=== PATIENT | female | born 1980 | race African-American/Black ===

== ENCOUNTER 2016-11-16 21:29 | Emergency (ER) | payer OTHER ==
[~2016-11-16] VITALS: Ht 165.1 cm; Wt 90.0 kg
[2016-11-16 21:48] VITALS: BP 117/58; PULSE 101; RESP 18; TEMP 97.8; O2SAT 100
[2016-11-16] MEDS ORDERED: PRIL20CA9 PO (21:56)
[2016-11-16] MEDS ORDERED: ERGO1CAP10 PO (21:56)
[2016-11-16] MEDS ORDERED: oxyCODONE/ACETAMINOPHEN 10 MG/325 MG TAB PO ONE (22:30)
--- NOTE | 2016-11-16 22:55 | RADRPT ---
EXAM DATE/TIME: 11/16/2016 22:36 [place] COMPARISON: No previous studies available for comparison. INDICATIONS : Right knee pain post twisting injury at [employer]. MEDICAL HISTORY : None. SURGICAL HISTORY : None. ENCOUNTER: Initial ACUITY: 1 day PAIN SCORE: 10/10 LOCATION: Right knee FINDINGS: Four view examination of the right knee demonstrates no evidence of fracture or dislocation. Bony mi neralization is normal. Mild degenerative changes noted involving the patella with slight spurring. The articular surfaces are intact. There is mild fullness in the suprapatellar bursa region consisten t with a small joint effusion. CONCLUSION: 1. No acute fracture or malalignment. 2. Mild osteoarthritic change. 3. Small amount of joint fluid. Efrain Warren MD on November 16, 2016 at 22:52 Board Certified Radiologist. This report was verified electronically.
[2016-11-16] MEDS ORDERED: NORC5TAB PO (23:04)
--- NOTE | 2016-11-16 23:04 | PD ---
HPI Chief Complaint: Injury Time Seen by Provider: 22:00 Travel History International Travel<30 days: No Contact w/Intl Traveler<30days: No Traveled to known affect area: No History of Present Illness HPI Patient is a 35 her old female who was with her [place] the [employer] [place] when she landed awkwardly on the [place]. She states she felt like her right knee bowed outwards that she landed. She is felt a pop in his been not attempted to bear weight since. Denies any other injuries denies any head neck back chest abdomen or other extremity injury. Patient states happened just prior to arrival. She did arrive by EMS and they splint is in place. PFSH Past Medical History Diminished Hearing: No GERD: Yes Medical other: Yes (vitamin D deffency) Tetanus Vaccination: Unknown Influenza Vaccination: Yes ?: Unknown LMP: 11/09/2016 Past Surgical History Surgical History: No Previous Surgery Social History Alcohol Use: No Tobacco Use: No Substance Use: No Allergies-Medications (Allergen,Severity, Reaction): Coded Allergies: No Known Allergies (Unverified , 11/16/16) Reported Meds & Prescriptions Reported Meds & Active Scripts Active [place] (Hydrocodone-Acetaminophen) 5-325 mg Tab 1 Tab PO Q6H PRN Reported Vitamin D (Ergocalciferol) 50,000 Unit Cap 50,000 Units PO Q7D Prilosec (Omeprazole) 20 Mg Cap 20 Mg PO DAILY Review of Systems Except as stated in HPI: all other systems reviewed are Neg Physical Exam Narrative GENERAL: Well-nourished, well-developed patient. SKIN: Focused skin assessment warm/dry. HEAD: Normocephalic. EYES: No scleral icterus. No injection or drainage. NECK: Supple, trachea midline. No JVD or lymphadenopathy. CARDIOVASCULAR: Regular rate and rhythm without murmurs, gallops, or rubs. RESPIRATORY: Breath sounds equal bilaterally. No accessory muscle use. GASTROINTESTINAL: Abdomen soft, non-tender, nondistended. MUSCULOSKELETAL: No cyanosis, or edema. Patient's left lower extremity is atraumatic. Full nontender range of motion at the hip knee and ankle and foot. Patient's right lower extremity has no tenderness on range of motion of the hip ankle or foot. There is tender range of motion when the patient bends her right knee. There is a small posterior joint effusion. There is some mild laxity with varus testing. Otherwise valgus testing and anterior posterior drawer testing are negative. Pulses motor and sensory intact distally. Pulses are equal bilaterally. No gross deformity. BACK: Nontender without obvious deformity. No CVA tenderness. Data Data Last Documented VS Vital Signs Date Time Temp Pulse Resp B/P Pulse Ox O2 Delivery O2 Flow Rate FiO2 11/16/16 21:48 97.8 101 18 117/58 100 Orders Knee, Complete (4vws) (11/16/16 ) Oxycodone-Acetamin 10-325 Mg (Percocet 1 (11/16/16 22:30) ^ Knee Immobilizer (11/16/16 22:51) Crutches (11/16/16 ) MDM Medical Decision Making Medical Screen Exam Complete: Yes Emergency Medical Condition: Yes Differential Diagnosis Fall, knee sprain, knee strain, knee fracture. Narrative Course Patient was roomed in the emergency department, initial evaluation is concerning for the lateral collateral ligament injury. X-rays were obtained and negative. Patient will be placed in a knee immobilizer and on crutches need follow-up with an orthopedic surgeon or primary care physician for consideration of MRI in 1-2 weeks. Otherwise discussed rice and ibuprofen at home. She is stable for discharge at this time. Diagnosis Primary Impression: Knee sprain Qualified Code: S83.421A - Sprain of lateral collateral ligament of right knee , initial encounter Referrals: Los Graham MD Additional Instructions: If he can manage take ibuprofen for Pain. If the pain is severe you can try the prescribed [place]. If the pain is still severe please return emergency department. Med/Other Pt SpecificInfo: Prescription(s) given Scripts Hydrocodone-Acetaminophen ([place])5-325 mg Tab1 Tab PO Q6H PRN (PAIN) #15 TAB Ref 0 Prov:Evelio Sheriff MD 11/16/16 Disposition: 01 DISCHARGE HOME Condition: Stable Evelio Sheriff MD Nov 16, 2016 23:04
== END 2016-11-16 23:47 | disposition home or self-care (01) ==
LOC: NEPD 21:29
DX: S83.421A Sprain of lateral collateral ligament of right knee, initial encounter (principal); E55.9 Vitamin D deficiency, unspecified; Z87.19 Personal history of other diseases of the digestive system; X58.XXXA Exposure to other specified factors, initial encounter; Y93.44 Activity, trampolining; Y92.838 Other recreation area as the place of occurrence of the external cause
CPT/HCPCS: 73564; 99283; E0113